=== PATIENT | female | born 1995 | race African-American/Black ===

== ENCOUNTER 2018-04-13 06:04 | Emergency (ER) | payer BC, MEDICAID ==
[~2018-04-13] VITALS: Ht 165.1 cm; Wt 123.0 kg
[2018-04-13 07:26] LABS: BASOPHILS % 0.8 % (0.0-2.0); EOSINOPHILS % 8.2 % (0.0-5.0); HEMATOCRIT. 40.6 % (36.0-48.0); MEAN CORPUSCULAR HEMOGLOBIN 25.4 pg (28.0-32.0); MEAN CORPUSCULAR VOLUME 79.5 fL (81.0-99.0); MEAN PLATELET VOLUME 8.5 fl (7.4-10.4); MONOCYTES % 6.2 % (2.0-8.0); NEUTROPHILS % 58.8 % (40.0-76.0); PLATELET 331 x1000/uL (130-400); RED BLOOD CELL COUNT 5.12 mill/uL (4.2-5.4); RED CELL DISTRIBUTION WIDTH 15.2 % (11.6-14.6)
[2018-04-13 07:34] LABS: CHLORIDE 108 mEq/L (98-107)
[2018-04-13 07:36] LABS: INR 1.1; PROTHROMBIN TIME 10.6 sec (9.1-11.1)
[2018-04-13 09:09] LABS: HCG SCREEN NEGATIVE
[2018-04-13] MEDS ORDERED: KETOROLAC 30MG/ML VIAL IV ONE (09:30)
[2018-04-13] MEDS ORDERED: SODIUM CHLORIDE 0.9% 1,000 ML IV ONE (09:30)
[2018-04-13 12:48] LABS: CLARITY URINE CLOUDY (CLEAR); COLOR URINE YELLOW (YELLOW); KETONES URINE NEGATIVE (NEGATIVE); LEUKOCYTE ESTERASE URINE NEGATIVE (NEGATIVE); NITRITE URINE NEGATIVE (NEGATIVE); OCCULT BLOOD URINE NEGATIVE (NEGATIVE); PH URINE 5.5 (4.5-8.0); PROTEIN URINE NEGATIVE (NEGATIVE); SPECIFIC GRAVITY URINE 1.018 (1.005-1.030); UROBILINOGEN URINE 0.2 E.U./dL (0.2-1.0)
[2018-04-13 13:40] VITALS: BP 120/73
== END 2018-04-13 13:57 | disposition home or self-care (01) ==
LOC: ER 08:39
DX: R00.2 Palpitations (principal); J11.1 Influenza due to unidentified influenza virus with other respiratory manifestations; E66.9 Obesity, unspecified; Z68.42 Body mass index [BMI] 45.0-49.9, adult
CPT/HCPCS: 36415; 71045; 80053; 81003; 84443; 84484; 84702; 84703; 85025; 85610; 87804; 93005; 99284; J7030

== ENCOUNTER 2018-04-13 17:45 | Emergency (ER) | payer BC ==
[~2018-04-13] VITALS: Ht 170.2 cm; Wt 122.0 kg
[2018-04-13] MEDS ORDERED: SODIUM CHLORIDE 0.9% 1,000 ML IV ONE (18:53)
[2018-04-13] MEDS ORDERED: MAGNESIUM/ALUMINUM HYDROXIDE/SIMETHICONE 30ML UDC PO STA (18:53)
[2018-04-13] MEDS ORDERED: FAMOTIDINE 20MG/2ML VIAL IV STA (18:53)
[2018-04-13] MEDS ORDERED: ONDANSETRON HCL 4MG/2ML INJ IV ONE (19:00)
[2018-04-13] MEDS ORDERED: ONDANSETRON 4MG ODT PO ONE (20:00)
[2018-04-13 21:47] VITALS: BP 121/72
== END 2018-04-13 22:12 | disposition home or self-care (01) ==
LOC: ER 17:45
DX: R10.13 Epigastric pain (principal); R11.0 Nausea
CPT/HCPCS: 76705; 81025; 96374; 96375; 99284; J2405; J3490; J7030; Q0162

== ENCOUNTER 2018-11-04 14:53 | Emergency (ER) | payer BC ==
[~2018-11-04] VITALS: Ht 165.1 cm; Wt 122.0 kg
[2018-11-04] MEDS ORDERED: PREDNISONE 20MG TABLET PO STA (17:22)
[2018-11-04] MEDS ORDERED: IPRATROPIUM/ALBUTEROL 0.5-3(2.5)MG/3ML NEB HHN ONE (17:30)
[2018-11-04] MEDS ORDERED: AZITHROMYCIN 500 MG TABLET PO ONE (17:30)
[2018-11-04 20:07] VITALS: BP 100/58
== END 2018-11-04 20:08 | disposition home or self-care (01) ==
LOC: ER 14:53
DX: J45.901 Unspecified asthma with (acute) exacerbation (principal); J40 Bronchitis, not specified as acute or chronic
CPT/HCPCS: 71045; 81025; 94640; 99283; J7512; J7620